=== PATIENT | female | born 1975 | race Caucasian/White ===

== ENCOUNTER 2017-04-03 11:45 | Emergency (ER) | payer OTHER | END 2017-04-03 12:02 | disposition home or self-care (01) | LOC: BURERS 11:45 | DX: J34.0 Abscess, furuncle and carbuncle of nose (principal); F17.210 Nicotine dependence, cigarettes, uncomplicated | CPT/HCPCS: 99283 ==

== ENCOUNTER 2017-10-15 16:13 | Emergency (ER) | payer OTHER ==
[2017-10-15] MEDS ORDERED: traMADol HCl 50 MG TAB ONE (16:56)
[2017-10-15] MEDS ORDERED: AMOXicillin 250 MG CAP ONE (16:57)
== END 2017-10-15 17:01 | disposition home or self-care (01) ==
LOC: BURERS 16:13
DX: J01.90 Acute sinusitis, unspecified (principal); M06.9 Rheumatoid arthritis, unspecified; F17.210 Nicotine dependence, cigarettes, uncomplicated
CPT/HCPCS: 99283

== ENCOUNTER 2022-11-25 13:24 | Emergency (ER) | payer SELFPAY ==
[2022-11-25] MEDS ORDERED: Morphine 2 MG/ML VIAL ONE (13:43)
== END 2022-11-25 13:51 | disposition home or self-care (01) ==
LOC: BURERS 13:24
DX: M54.6 Pain in thoracic spine (principal); E06.3 Autoimmune thyroiditis; F17.210 Nicotine dependence, cigarettes, uncomplicated; Z79.899 Other long term (current) drug therapy
CPT/HCPCS: 96372; 99283; J2272

== ENCOUNTER 2023-01-31 15:41 | Emergency (ER) | payer SELFPAY ==
[2023-01-31 16:12] LABS: #Basophils 0.1 thou/uL (0.0-0.2); #Eosinphils 0.2 thou/uL (0.0-0.7); #Lymphocytes 2.4 thou/uL (1.20-3.40); #Monocytes 0.5 thou/uL (0.11-0.59); #Neutrophils 3.8 thou/uL (1.40-6.50); %Basophils 1.1 % (0.0-1.0); %Eosinophils 2.8 % (0.0-10.0); %Lymphocytes 35.2 % (21.0-51.0); %Monocytes 6.7 % (0.0-10.0); %Neutrophils 54.3 % (42.0-75.0); Hemoglobin 13.5 g/dL (12.0-16.0); Mean Corpuscular HGB CONC 30.4 g/dL (32.0-36.0); Mean Corpuscular Hemoglobin 26.8 pg (27.0-31.0); Mean Corpuscular Volume 88.2 fl (78.0-98.0); Mean Platelet Volume 8.6 fL (7.4-10.4); Platelet Count 256 10x3/uL (130-400); RBC Distribution Width 13.5 % (11.5-14.5); Red Blood Cell (RBC) Count 5.03 mill/uL (4.20-5.40); White Blood Cell (WBC) Count 6.9 10x3/uL (4.8-10.8)
[2023-01-31] MEDS ORDERED: Metoclopramide HCl 10 MG/2 ML VIAL ONE (16:23)
[2023-01-31 16:29] LABS: ALT (SGPT) 8 U/L (8-55); AST (SGOT) 19 U/L (5-34); Albumin 3.8 g/dL (3.5-5.0); Alkaline Phosphatase 91 U/L (40-110); Anion Gap 13 mmol/L (10-20); BUN (Urea Nitrogen) 14 mg/dL (7.0-18.7); Bilirubin, Total 0.2 mg/dL (0.2-1.2); Calc. Creatinine Clearance 0 mL/min (70-130); Calcium 8.9 mg/dL (7.8-10.44); Carbon Dioxide 23 mmol/L (22-29); Chloride 110 mmol/L (98-107); Estimated GFR 107; Globulin 4.5 g/dL (2.4-3.5); Glucose 91 mg/dL (70-105); Protein, Total 8.3 g/dL (6.0-8.3); Sodium 142 mmol/L (136-145)
== END 2023-01-31 17:40 | disposition home or self-care (01) ==
LOC: BURERS 15:41
DX: B34.9 Viral infection, unspecified (principal); F17.210 Nicotine dependence, cigarettes, uncomplicated
CPT/HCPCS: 71045; 80053; 83605; 85025; 93005; 96374; J2765

== ENCOUNTER 2024-09-10 15:18 | Emergency (ER) | payer OTHER, SELFPAY ==
[~2024-09-10 15:18] MED LIST: Iopamidol 370 76% 100 ML VIAL ONE
[2024-09-10] MEDS ORDERED: Ipratropium/Albuterol 3 ML NEB ONE (16:04)
[2024-09-10] MEDS ORDERED: Aspirin 325 MG TAB ONE (16:04)
[2024-09-10] MEDS ORDERED: Dexamethasone 4 mg/ml Vial ONE (16:04)
[2024-09-10] MEDS ORDERED: Acetaminophen 500 MG TAB ONE (16:05)
[2024-09-10 16:21] LABS: #Basophils 0.1 thou/uL (0.0-0.2); #Eosinophils 0.2 thou/uL (0.0-0.7); #Lymphocytes 2.1 thou/uL (1.20-3.40); #Monocytes 0.5 thou/uL (0.11-0.59); #Neutrophils 3.7 thou/uL (1.40-6.50); %Basophils 1.5 % (0.0-1.0); %Eosinophils 3.1 % (0.0-10.0); %Lymphocytes 31.7 % (21.0-51.0); %Monocytes 8.1 % (0.0-10.0); %Neutrophils 55.6 % (42.0-75.0); Hematocrit 41.9 % (36.0-47.0); Hemoglobin 13.4 g/dL (12.0-16.0); Mean Corpuscular Hemoglobin 27.8 pg (27.0-31.0); Mean Corpuscular Volume 86.9 fl (78.0-98.0); Platelet Count 268 10x3/uL (130-400); RBC Distribution Width 12.7 % (11.5-14.5); Red Blood Cell (RBC) Count 4.81 mill/uL (4.20-5.40); White Blood Cell (WBC) Count 6.7 10x3/uL (4.8-10.8)
[2024-09-10 16:25] LABS: ALT (SGPT) 16 U/L (8-55); AST (SGOT) 25 U/L (5-34); Albumin 3.5 g/dL (3.5-5.0); Alkaline Phosphatase 89 U/L (40-110); Anion Gap 14 mmol/L (10-20); BUN (Urea Nitrogen) 6 mg/dL (7.0-18.7); Bilirubin, Total 0.3 mg/dL (0.2-1.2); Calc. Creatinine Clearance 0 mL/min (70-130); Calcium 8.9 mg/dL (7.8-10.44); Carbon Dioxide 25 mmol/L (22-29); Chloride 107 mmol/L (98-107); Estimated GFR 86; Globulin 4.3 g/dL (2.4-3.5); Glucose 80 mg/dL (70-105); Potassium 3.8 mmol/L (3.5-5.1); Protein, Total 7.8 g/dL (6.0-8.3); Sodium 142 mmol/L (136-145)
[2024-09-10 16:26] LABS: Troponin I Less than 0.010 ng/mL (< 0.028)
== END 2024-09-10 17:26 | disposition home or self-care (01) ==
LOC: BURERS 15:18
DX: J06.9 Acute upper respiratory infection, unspecified (principal); B97.89 Other viral agents as the cause of diseases classified elsewhere; R09.1 Pleurisy; R05.9 Cough, unspecified; F17.210 Nicotine dependence, cigarettes, uncomplicated
CPT/HCPCS: 71275; 80053; 83605; 83880; 84484; 85025; 87428; 93005; 96374; J1100; J7620; Q9967